=== PATIENT | female | born 1970 | race African-American/Black ===

== ENCOUNTER 2017-06-06 10:15 | Emergency (ER) | payer OTHER ==
[~2017-06-06] VITALS: Ht 167.6 cm; Wt 131.3 kg
[2017-06-06 11:04] LABS: EOSINOPHIL (%) 3.8 % (0-5); EOSINOPHIL COUNT 0.3 K/uL (0-0.3); HEMATOCRIT 38.1 % (36.0-46.0); IMMATURE GRANULOCYTE (%) 0.3 % (0.0-0.7); INSTRUMENT ABS NEUTROPHIL CT 4.3 K/uL; MCH 26.5 PG (29.0-34.0); MCHC 31.8 G/DL (30.0-36.0); MCV 83.6 FL (83-99); MEAN PLAT.VOLUME 11.3 uM^3 (9.5-12.4); MONOCYTE (%) 8.1 % (3-12); MONOCYTE COUNT 0.6 K/uL (0-0.8); NEUTROPHIL (%) 59.9 % (45-76); NEUTROPHIL COUNT 4.3 K/uL (1.8-6.4); PLATELET COUNT 323 K/uL (156-360); RBC DIS.WIDTH-CV 15.7 % (11.8-14.6); RED BLOOD COUNT 4.56 M/uL (3.80-5.20); WHITE BLOOD COUNT 7.2 K/uL (4.1-10.2)
[2017-06-06 11:12] LABS: PROTHROMBIN TIME 11.9 SEC (10.2-12.9)
[2017-06-06 11:14] LABS: CHLORIDE 109 mEq/L (99-109); POTASSIUM 3.9 mEq/L (3.7-5.4); SODIUM 142 mEq/L (136-147)
[2017-06-06 11:15] LABS: GLUCOSE 102 mg/dL (70-99)
[2017-06-06 11:17] LABS: ANION GAP 10 MEQ/L (2-14)
[2017-06-06 11:19] LABS: GFR ESTIMATE (CALCULATED) > 59 mL/min/
[2017-06-06 11:20] LABS: UREA NITROGEN (BUN) 9 mg/dL (9-23)
[2017-06-06] MEDS ORDERED: XARELTO20 MG PO (12:55)
[2017-06-06] MEDS ORDERED: XARELTO15 MG PO (12:55)
[2017-06-06 13:11] VITALS: BP 125/75
== END 2017-06-06 13:11 | disposition home or self-care (01) ==
LOC: EME 10:15
PROVIDERS: Emergency Medicine
DX: I82.441 Acute embolism and thrombosis of right tibial vein (principal); J45.909 Unspecified asthma, uncomplicated; F90.9 Attention-deficit hyperactivity disorder, unspecified type; F41.9 Anxiety disorder, unspecified
CPT/HCPCS: 80048; 85025; 85610; 93971; 99281; 99284

== ENCOUNTER 2017-06-18 23:00 | Emergency (ER) | payer OTHER ==
[~2017-06-18] VITALS: Ht 170.2 cm; Wt 134.1 kg
[~2017-06-18 23:00] MED LIST: XARELTO15 MG PO; XARELTO20 MG PO
[2017-06-18 23:46] LABS: HEMATOCRIT 38.3 % (36.0-46.0); MCH 26.2 PG (29.0-34.0); MCHC 31.6 G/DL (30.0-36.0); MCV 83.1 FL (83-99); MEAN PLAT.VOLUME 11.5 uM^3 (9.5-12.4); PLATELET COUNT 298 K/uL (156-360); RBC DIS.WIDTH-CV 15.5 % (11.8-14.6); RBC DIS.WIDTH-SD 46.7 % (39-53); RED BLOOD COUNT 4.61 M/uL (3.80-5.20); WHITE BLOOD COUNT 8.4 K/uL (4.1-10.2)
[2017-06-19 00:05] LABS: CHLORIDE 106 mEq/L (99-109); POTASSIUM 4.4 mEq/L (3.7-5.4); SODIUM 140 mEq/L (136-147)
[2017-06-19 00:07] LABS: GLUCOSE 95 mg/dL (70-99)
[2017-06-19 00:08] LABS: ANION GAP 9 MEQ/L (2-14)
[2017-06-19 00:11] LABS: GFR ESTIMATE (CALCULATED) > 59 mL/min/
[2017-06-19 00:12] LABS: UREA NITROGEN (BUN) 12 mg/dL (9-23)
[2017-06-19 00:16] LABS: TROP-I INTERPRETATION NEGATIVE; TROPONIN-I < 0.01 ng/mL (0.0-0.30)
[2017-06-19 04:34] VITALS: BP 124/47
== END 2017-06-19 04:36 | disposition home or self-care (01) ==
LOC: EME 23:00
DX: M79.605 Pain in left leg (principal); R06.02 Shortness of breath; J45.909 Unspecified asthma, uncomplicated; Z86.718 Personal history of other venous thrombosis and embolism; Z79.01 Long term (current) use of anticoagulants
CPT/HCPCS: 71020; 71275; 80048; 81240 90; 83090 90; 84484; 85027; 85240 90; 85300 90; 85303 90; 85305 90; 85306 90; 85307 90; 85613 90; 85730 90; 86146 90; 86147 90; 93005; 93970; 99281; 99285

== ENCOUNTER 2018-03-02 00:19 | Emergency (ER) | payer OTHER ==
[~2018-03-02] VITALS: Ht 167.6 cm; Wt 136.0 kg
[2018-03-02 00:21] VITALS: BP 146/90
[2018-03-02 01:14] LABS: HEMATOCRIT 39.1 % (36.0-46.0); HEMOGLOBIN 12.3 G/DL (11.9-15.5); MCH 26.2 PG (29.0-34.0); MCHC 31.5 G/DL (30.0-36.0); MCV 83.2 FL (83-99); PLATELET COUNT 250 K/uL (156-360); RBC DIS.WIDTH-CV 14.6 % (11.8-14.6); RBC DIS.WIDTH-SD 44.2 % (39-53); WHITE BLOOD COUNT 7.8 K/uL (4.1-10.2)
[2018-03-02 01:23] LABS: CHLORIDE 108 mEq/L (99-109); POTASSIUM 4.1 mEq/L (3.7-5.4); SODIUM 142 mEq/L (136-147)
[2018-03-02 01:24] LABS: GLUCOSE 100 mg/dL (70-99)
[2018-03-02 01:28] LABS: CREATININE 0.9 mg/dL (0.6-1.3); GFR ESTIMATE (CALCULATED) > 59 mL/min/
[2018-03-02 01:29] LABS: UREA NITROGEN (BUN) 13 mg/dL (9-23)
[2018-03-02 01:34] LABS: TROP-I INTERPRETATION NEGATIVE; TROPONIN-I < 0.01 ng/mL (0.0-0.30)
== END 2018-03-02 02:15 | disposition left against medical advice (07) ==
LOC: EME 00:19
DX: R06.02 Shortness of breath (principal); R05 Cough; Z53.21 Procedure and treatment not carried out due to patient leaving prior to being seen by health care provider
CPT/HCPCS: 71046; 80048; 84484; 85027; 94640